=== PATIENT | female | born 1995 | race Two or more races ===

== ENCOUNTER 2018-01-22 15:12 | Emergency (ER) | payer OTHER ==
[2018-01-22 15:12] VITALS: BMI 21.6
[2018-01-22 15:26] VITALS: BP 120/73; PULSE 72; RESP 20; TEMP 98.4; O2SAT 100
--- NOTE | 2018-01-22 15:27 | ED PDOC ---
HPI: General Adult Time Seen by Provider: 01/22/18 15:25 Chief Complaint (Nursing): Abnormal Skin Integrity Chief Complaint (Provider): rash History Per: Patient Additional Complaint(s): 22-year-old female presents with itchy rash to entire body status post being outdoors yesterday and sustaining multiple insect bites. Patient states that she was bit several times by mosquitoes yesterday. She woke up today with itchy raised rash. She took Benadryl earlier but this barely helped with the itching. She denies fever or chills, no drainage from lesions. PMD: none Past Medical History Reviewed: Historical Data, Nursing Documentation, Vital Signs Vital Signs: Last Vital Signs Temp 98.4 F 01/22/18 15:23 Pulse 72 01/22/18 15:23 Resp 20 01/22/18 15:23 BP 120/73 01/22/18 15:23 Pulse Ox 100 01/22/18 15:27 - Medical History PMH: No Chronic Diseases - Surgical History Surgical History: No Surg Hx - Family History Family History: States: No Known Family Hx - Living Arrangements Living Arrangements: With Family - Social History Current smoker - smoking cessation education provided: No Alcohol: None Drugs: Denies - Home Medications Home Medications: Ambulatory Orders Medication Instructions Recorded Clindamycin [Cleocin] 300 mg PO TID #21 cap 01/22/18 Prednisone 50 mg PO DAILY #5 tablet 01/22/18 - Allergies Allergies/Adverse Reactions: Allergies Allergy/AdvReac Type Severity Reaction Status Date / Time No Known Allergies Allergy Verified 01/22/18 15:23 Review of Systems ROS Statement: Except As Marked, All Systems Reviewed And Found Negative Constitutional: Negative for: Fever Skin: Positive for: Rash, Lesions (insect bites) Physical Exam - Reviewed Nursing Documentation Reviewed: Yes Vital Signs Reviewed: Yes - Physical Exam Appears: Positive for: Well, Non-toxic, No Acute Distress Skin: Positive for: Normal Color, Rash (Multiple raised erythematous lesions noted to the back, upper and lower extremities, appearance of lesions consistent with insect bites, no active drainage, skin excoriations noted from scratching) Cardiovascular/Chest: Positive for: Regular Rate, Rhythm Respiratory: Positive for: Normal Breath Sounds. Negative for: Respiratory Distress Extremity: Positive for: Normal ROM Neurologic/Psych: Positive for: Alert, Oriented - Laboratory Results Urine POC: Negative - ECG O2 Sat by Pulse Oximetry: 100 Pulse Ox Interpretation: Normal Medical Decision Making Medical Decision Making: Impression: Multiple insect bites. Plan: 125 mg IM solumedrol Patient advised to continue with [id number] Benadryl for itching and was given prescriptions for prednisone and clindamycin. She was referred to clinic for follow up. Disposition - Clinical Impression Clinical Impression: Insect bites - Patient ED Disposition Is Patient to be Admitted: No Counseled Patient/Family Regarding: Diagnosis, Need For Followup, Rx Given - Disposition Referrals: [facility] [Outside] Disposition: Routine/Home Disposition Time: 16:26 Condition: STABLE Additional Instructions: Take rx meds as directed. Over the counter benadryl for itch relief of benadryl itch cream. Follow up with clinic in 2-3 days. Prescriptions: Clindamycin [Cleocin] 300 mg PO TID #21 cap Prednisone 50 mg PO DAILY #5 tablet Instructions: Insect Bites and Stings Forms: [facility] (Yoruba)
== END 2018-01-22 16:35 | disposition home or self-care (01) ==
LOC: H.ER 15:12
DX: T07.XXXA Unspecified multiple injuries, initial encounter (principal); W57.XXXA Bitten or stung by nonvenomous insect and other nonvenomous arthropods, initial encounter; Y92.89 Other specified places as the place of occurrence of the external cause
CPT/HCPCS: 81025; 96372; 99282; J2930